=== PATIENT | male | born 2000 | race Caucasian/White ===

== ENCOUNTER 2025-08-22 18:18 | Emergency (ER) | payer OTHER ==
[2025-08-22] MEDS ORDERED: Ketorolac Tromethamine 30 MG (1 mL) VIAL ONE (19:23)
[2025-08-22] MEDS ORDERED: Rabies Vaccine Human 2.5 UNITS VIAL ONE (19:25)
[2025-08-22] MEDS ORDERED: Rabies Immune Globulin/PF 300 UNITS/ML VIAL ONE ×2 (19:25→19:40)
[2025-08-22] MEDS ORDERED: Rabies Immune Globulin/PF 300 UNITS/ML VIAL IM SCH (19:45)
== END 2025-08-22 20:10 | disposition home or self-care (01) ==
LOC: ERS 18:18
DX: S61.451A Open bite of right hand, initial encounter (principal); F17.210 Nicotine dependence, cigarettes, uncomplicated; W54.0XXA Bitten by dog, initial encounter
CPT/HCPCS: 90375; 90471; 90675; 96372; J1885

== ENCOUNTER 2025-08-25 21:17 | Day surgery (SDC) | payer OTHER ==
[2025-08-25] MEDS ORDERED: Rabies Vaccine Human 2.5 UNITS VIAL ONE (22:13)
== END 2025-08-25 22:21 | disposition home or self-care (01) ==
LOC: ER/OP 21:17
PROVIDERS: ATTEND Nurse Practitioner Family
DX: Z29.14 Encounter for prophylactic rabies immune globulin (principal)
CPT/HCPCS: 90471; 90675